=== PATIENT | male | born 1935 | race African-American/Black ===

== ENCOUNTER 2018-04-23 13:18 | Inpatient (IN) | payer MEDICARE, BC ==
[~2018-04-23] VITALS: Ht 180.3 cm; Wt 93.4 kg
[~2018-04-23 13:18] MED LIST: AMLO5TAB4 PO; ATOR20TA PO; BIMA2.5D4 EACHEYE; CARV25TA47 PO; DIGO125T82 PO; ELIQUIS PO; FURO40TA5 PO; LOSA50TA20 PO; SPIR25TA6 PO
[2018-04-23] MEDS ORDERED: FUROSEMIDE 40MG/4ML VIAL IV ONE (14:30)
[2018-04-23] MEDS ORDERED: ASPIRIN 81MG TABLET PO ONE (14:30)
[2018-04-23 15:15] LABS: BASOPHILS % 0.4 % (0.0-2.0); EOSINOPHILS % 1.1 % (0.0-5.0); HEMATOCRIT. 38.9 % (42.0-52.0); HEMOGLOBIN. 12.5 g/dL (14.0-18.0); LYMPHOCYTES % 19.6 % (20.0-50.0); MEAN CORPUSCULAR HEMOGLOBIN 28.5 pg (28.0-32.0); MEAN CORPUSCULAR VOLUME 88.7 fL (80.0-94.0); MEAN PLATELET VOLUME 9.2 fl (7.4-10.4); MONOCYTES % 9.8 % (2.0-8.0); NEUTROPHILS % 69.1 % (40.0-76.0); PLATELET 194 x1000/uL (130-400); RED BLOOD CELL COUNT 4.39 mill/uL (4.7-6.1); RED CELL DISTRIBUTION WIDTH 17.4 % (11.6-14.6)
[2018-04-23 15:16] LABS: CHLORIDE 102 mEq/L (98-107)
[2018-04-23 15:20] LABS: INR 1.5; PARTIAL THROMBOPLASTIN TIME 28.6 sec (23.4-31.0); PROTHROMBIN TIME 15.4 sec (9.4-11.6)
[2018-04-23 15:24] LABS: ETHANOL BLOOD < 10 mg/dL
[2018-04-23 15:52] LABS: DIGOXIN 0.1 ng/mL (0.9-2.0)
[2018-04-23] MEDS: AMIODARONE HCL 200 MG TABLET PO SCH (17:13)
[2018-04-23] MEDS ORDERED: CLONIDINE 0.1MG TABLET PO PRN (17:30)
[2018-04-23] MEDS ORDERED: DOCUSATE SODIUM 100MG CAPSULE PO PRN (17:30)
[2018-04-23] MEDS ORDERED: ACETAMINOPHEN 325MG TABLET PO PRN (17:30)
[2018-04-23] MEDS ORDERED: GUAIFENESIN 200MG/10ML SUGAR FREE UDC PO PRN (17:30)
[2018-04-23 22:00] VITALS: BP 108/61
[2018-04-23] MEDS ORDERED: ONDANSETRON 4MG ODT PO PRN (22:00)
[2018-04-24] VITALS: BP 103/71
[2018-04-24 04:00] VITALS: BP 104/65
[2018-04-24 08:30] VITALS: BP 99/68
[2018-04-24] MEDS: AMIODARONE HCL 200 MG TABLET PO SCH (09:08)
[2018-04-24] MEDS: ASPIRIN 81MG EC TABLET PO SCH (09:08)
[2018-04-24 09:23] LABS: BASOPHILS % 0.6 % (0.0-2.0); EOSINOPHILS % 1.9 % (0.0-5.0); HEMATOCRIT. 39.8 % (42.0-52.0); HEMOGLOBIN. 12.8 g/dL (14.0-18.0); LYMPHOCYTES % 24.3 % (20.0-50.0); MEAN CORPUSCULAR HEMOGLOBIN 28.5 pg (28.0-32.0); MEAN CORPUSCULAR VOLUME 88.3 fL (80.0-94.0); MEAN PLATELET VOLUME 9.2 fl (7.4-10.4); MONOCYTES % 10.9 % (2.0-8.0); NEUTROPHILS % 62.3 % (40.0-76.0); PLATELET 183 x1000/uL (130-400); RED BLOOD CELL COUNT 4.51 mill/uL (4.7-6.1); RED CELL DISTRIBUTION WIDTH 17.6 % (11.6-14.6)
[2018-04-24 09:37] LABS: CHLORIDE 101 mEq/L (98-107)
[2018-04-24 09:44] LABS: LDL CHOLESTEROL 75 mg/dL (5-100)
[2018-04-24 09:45] LABS: HDL CHOLESTEROL 25 mg/dL (40-59)
[2018-04-24 09:47] LABS: CREATINE KINASE MB FRACTION 2.8 ng/mL (0.5-3.6)
[2018-04-24 09:48] LABS: CREATINE KINASE 134 IU/L (39-308)
[2018-04-24 09:49] LABS: T4 FREE 1.55 ng/dL (0.76-1.46)
[2018-04-24] MEDS ORDERED: SODIUM CHLORIDE 0.9% 1,000 ML IV ONE (10:15)
[2018-04-24 12:00] VITALS: BP 106/69
[2018-04-24 14:09] LABS: CLARITY URINE CLEAR (CLEAR); COLOR URINE DARK YELLOW (YELLOW); KETONES URINE NEGATIVE (NEGATIVE); LEUKOCYTE ESTERASE URINE TRACE (NEGATIVE); NITRITE URINE NEGATIVE (NEGATIVE); OCCULT BLOOD URINE NEGATIVE (NEGATIVE); PROTEIN URINE TRACE (NEGATIVE); SPECIFIC GRAVITY URINE 1.018 (1.005-1.030)
[2018-04-24 14:34] LABS: SODIUM URINE RANDOM 30 mEq/L
[2018-04-24 14:39] LABS: *AMPHETAMINES SCREEN URINE NEGATIVE (NEGATIVE); *BARBITURATES SCREEN URINE NEGATIVE (NEGATIVE); *BENZODIAZEPINES SCREEN URINE NEGATIVE (NEGATIVE); *COCAINE SCREEN URINE NEGATIVE (NEGATIVE); CANNABINOID URINE SCREEN NEGATIVE (NEGATIVE); METHADONE URINE SCREEN NEGATIVE (NEGATIVE); OPIATES URINE SCREEN NEGATIVE (NEGATIVE); PHENCYCLIDINE URINE SCREEN NEGATIVE (NEGATIVE)
[2018-04-24 16:00] VITALS: BP 104/65
[2018-04-24 20:00] VITALS: BP 102/74
[2018-04-25] VITALS: BP 103/75
[2018-04-25 04:00] VITALS: BP 101/74
[2018-04-25 08:00] VITALS: BP 105/70
[2018-04-25 08:09] LABS: BASOPHILS % 0.3 % (0.0-2.0); EOSINOPHILS % 1.8 % (0.0-5.0); HEMATOCRIT. 42.3 % (42.0-52.0); HEMOGLOBIN. 13.6 g/dL (14.0-18.0); LYMPHOCYTES % 25.6 % (20.0-50.0); MEAN CORPUSCULAR HEMOGLOBIN 28.7 pg (28.0-32.0); MEAN PLATELET VOLUME 9.4 fl (7.4-10.4); MONOCYTES % 9.8 % (2.0-8.0); NEUTROPHILS % 62.5 % (40.0-76.0); PLATELET 203 x1000/uL (130-400); RED BLOOD CELL COUNT 4.75 mill/uL (4.7-6.1); RED CELL DISTRIBUTION WIDTH 17.9 % (11.6-14.6)
[2018-04-25 08:39] LABS: PHOSPHORUS 4.3 mg/dL (2.5-4.9)
[2018-04-25] MEDS: ASPIRIN 81MG EC TABLET PO SCH (09:16)
[2018-04-25] MEDS: AMIODARONE HCL 200 MG TABLET PO SCH (09:16)
[2018-04-25 12:00] VITALS: BP 112/67
[2018-04-25 12:16] LABS: T4 FREE 1.52 ng/dL (0.76-1.46)
[2018-04-25] MEDS ORDERED: SODIUM CHLORIDE 0.9% 500 ML IV SCH (13:30)
[2018-04-25] MEDS ORDERED: AMI2 PO (13:50)
[2018-04-25] MEDS ORDERED: ASPI-1159 PO (13:50)
[2018-04-25] MEDS: SODIUM CHLORIDE 0.9% 500 ML IV SCH ×2 (15:06→21:40)
[2018-04-25 16:00] VITALS: BP 114/63
[2018-04-25 20:00] VITALS: BP 105/67
[2018-04-26] VITALS: BP 120/58
[2018-04-26 04:00] VITALS: BP 114/66
[2018-04-26 06:41] LABS: BASOPHILS % 0.2 % (0.0-2.0); HEMATOCRIT. 42.2 % (42.0-52.0); HEMOGLOBIN. 13.6 g/dL (14.0-18.0); LYMPHOCYTES % 17.5 % (20.0-50.0); MEAN CORPUSCULAR HEMOGLOBIN 28.6 pg (28.0-32.0); MEAN CORPUSCULAR VOLUME 88.5 fL (80.0-94.0); MEAN PLATELET VOLUME 9.4 fl (7.4-10.4); NEUTROPHILS % 73.3 % (40.0-76.0); PLATELET 176 x1000/uL (130-400); RED BLOOD CELL COUNT 4.76 mill/uL (4.7-6.1); RED CELL DISTRIBUTION WIDTH 17.6 % (11.6-14.6)
[2018-04-26 08:00] VITALS: BP 111/79
[2018-04-26 08:11] LABS: PHOSPHORUS 4.4 mg/dL (2.5-4.9)
[2018-04-26] MEDS: ASPIRIN 81MG EC TABLET PO SCH (09:08)
[2018-04-26] MEDS: AMIODARONE HCL 200 MG TABLET PO SCH (09:08)
[2018-04-26 12:00] VITALS: BP 109/74
[2018-04-26 16:00] VITALS: BP 108/73
[2018-04-26 20:00] VITALS: BP 108/85
[2018-04-27] VITALS: BP 110/73
[2018-04-27 04:00] VITALS: BP 106/78
[2018-04-27 08:00] VITALS: BP 103/67
[2018-04-27] MEDS: ASPIRIN 81MG EC TABLET PO SCH (08:20)
[2018-04-27] MEDS: AMIODARONE HCL 200 MG TABLET PO SCH (08:20)
[2018-04-27 10:18] VITALS: BP 103/67
[2018-04-27 12:00] VITALS: BP 107/59
[2018-04-29 13:07] LABS: *CREATININE RANDOM URINE 192.2 mg/dL (Not Estab.); MICROALBUMIN RANDOM URINE 209.9 ug/mL (Not Estab.)
== END 2018-04-27 13:00 | disposition home health service (06) | DRG 291 ==
LOC: ER 13:18 → 8WST 16:47 → EDBEDREQTM 16:49 → EDBEDREQ 16:49 → ENRESERV 20:01 → 8WST 04-25 12:55
PROVIDERS: ADMIT Hospitalist; ATTEND Hospitalist
DX: I13.0 Hypertensive heart and chronic kidney disease with heart failure and stage 1 through stage 4 chronic kidney disease, or unspecified chronic kidney disease (principal); I50.23 Acute on chronic systolic (congestive) heart failure; J96.00 Acute respiratory failure, unspecified whether with hypoxia or hypercapnia; N17.9 Acute kidney failure, unspecified; E87.1 Hypo-osmolality and hyponatremia; I42.0 Dilated cardiomyopathy; I48.0 Paroxysmal atrial fibrillation; I25.10 Atherosclerotic heart disease of native coronary artery without angina pectoris; R26.0 Ataxic gait; I49.5 Sick sinus syndrome; D64.9 Anemia, unspecified; E78.00 Pure hypercholesterolemia, unspecified; N18.3 Chronic kidney disease, stage 3 (moderate); I95.9 Hypotension, unspecified; E78.5 Hyperlipidemia, unspecified; Z85.46 Personal history of malignant neoplasm of prostate; Z79.899 Other long term (current) drug therapy; Z79.82 Long term (current) use of aspirin; Z79.01 Long term (current) use of anticoagulants; Z95.810 Presence of automatic (implantable) cardiac defibrillator
CPT/HCPCS: 36415; 70450; 71045; 76770; 78582; 80048; 80053; 80061; 80162; 80305; 81003; 82043; 82533; 82550; 82553; 82570; 83735; 83880; 83935; 84100; 84134; 84156; 84300; 84439; 84443; 84481; 84484; 85025; 85379; 85610; 85730; 93005; 93306; 93970; 96374; 97162; 99285; A9558; G0482; J1940; J7030; J7040